=== PATIENT | female | born 1950 | race Caucasian/White ===

== ENCOUNTER 2023-08-24 10:25 | Emergency (ER) | payer OTHER, SELFPAY ==
[2023-08-24] VITALS (9 sets, daily range): BP systolic 159–198; BP diastolic 95–123
--- NOTE | 2023-08-24 11:15 | ED.GENMED ---
History of Present Illness
General
Chief Complaint: Blood Pressure Problem
Source: patient
Exam Limitations: none
Time Seen by Provider: 08/24/23 11:14
Nursing documentation reviewed up to this point in time: agreed with
Travel History
Have you had any contact with someone who has COVID-19?: No
Do you have any symptoms of coronavirus? Fever > 100 degrees, chills, cough, shortness of breath, sore throat, loss of taste or smell, muscle aches, or headache?: No
History of Present Illness
History of Present Illness:
73-year-old female w hx of HTN followed by Dr. Martin Cardiology states her BP has been high past several days. Dr. Martin switched her from Nadolol (she thinks) to Losartan potassium 25 g daily (confirmed in her records) about 2 weeks ago due to
feeling so sleepy. She states her BP was 200/120 this a.m. She denies H/A, N/V, dizziness, weakness, numbness or tingling in extremities. She feels a little fatigued.
Past History
Past History
ED Past Medical History: HTN
ED Past Surgical History: None
Social History
Tobacco: Non-smoker
Personal:
Living: alone
Review of Systems
Review of Systems
Allergies reviewed?: Yes
All Other Systems: ROS reviewed and negative except as documented in HPI and ROS
Constitutional: Reports fatigue; Denies fever
Respiratory: Denies trouble breathing
Cardiac: Denies chest pain
ABD/GI: Denies nausea or vomiting
: Denies dysuria or difficulty voiding
Musculoskeletal: Reports no symptoms
Skin: Reports no symptoms
Neurological: Reports no symptoms
Phy Exam
Physical Exam
Physical Exam:
GENERAL: No acute distress. A&Ox3.
CONSTITUTIONAL: Afebrile.
EYES: Clear, conjunctivae normal
ENMT: moist mucus membranes, Pharynx nl
RESPIRATORY: Regular respirations, nonlabored, lungs clear.
CARDIOVASCULAR: Regular rate and rhythm, no murmurs, no rubs.
GI: Soft, nontender, normal BS
MUSCULOSKELETAL: Moves with ease. Well perfused.
SKIN: Warm, dry, pink
PSYCH: Normal mood and affect. Well kept, interactive and appropriate
NEUROLOGIC: Awake, alert and oriented. No focal neurological deficits
Course
Orders/Labs/Results
Orders:
Orders
08/24/23 10:45
Complete Blood Count/With Diff Urgent
Comprehensive Metabolic Panel Urgent
08/24/23 10:52
Electrocardiogram (*1) Urgent
Reason for Study: Chest Pain
EKG- Treatment ONCE
08/24/23 12:35
Labetalol HCl [Trandate] 10 mg IV NOW STA
Abnormal Lab Results
08/24/23
10:45
WBC 3.8 L 10^3/uL
(4.8-10.8)
RBC 3.36 L 10^6/uL
(4.20-5.40)
Hgb 11.7 L g/dL
(12.0-16.0)
Hct 33.7 L %
(37.0-47.0)
MCV 100.3 H fL
(81.0-99.0)
MCH 34.8 H pg
(27.0-31.0)
Absolute Lymphs (auto) 0.9 L 10^3/uL
(1.2-3.4)
Monocytes % 12.4 H %
(1.7-9.3)
Creatinine 0.5 L mg/dL
(0.6-1.0)
Glucose 114 H mg/dl
(70-99)
Total Bilirubin 1.5 H mg/dl
(0.2-1.3)
AST 129 H U/L
(14-36)
ALT 45 H U/L
(0-35)
08/24/23 10:45
08/24/23 10:45
Vital Signs
Initial and Last Documented VS:
Initial Vital Signs
Temp Pulse Resp BP Pulse Ox
98.1 F 108 18 198/104 99
08/24/23 10:49 08/24/23 10:49 08/24/23 10:49 08/24/23 10:49 08/24/23 10:49
Last Documented Vital Signs
Temp Pulse Resp BP Pulse Ox
98.1 F 101 26 160/95 97
08/24/23 10:49 08/24/23 14:36 08/24/23 14:15 08/24/23 14:00 08/24/23 13:03
Levi Maker consulted with Physician
Levi Maker consulted with physician?: Yes
Name of Physician Consulted: Hasmukh
MDM/Problems Addressed
Differential Diagnosis Includes:
hypertensive urgency, hypertensive emergency
MDM/Problems Addressed:
73-year-old female w hx of HTN followed by Dr. Martin Cardiology states her BP has been high past several days. Dr. Martin switched her from Nadolol (she thinks) to Losartan potassium 25 g daily (confirmed in her records) about 2 weeks ago due to
feeling so sleepy. She states her BP was 200/120 this a.m. She denies H/A, N/V, dizziness, weakness, numbness or tingling in extremities. She feels a little fatigued.
08/24/2023 1235 PM
Manual blood pressure checked by this examiner, 200/118
Labetalol will be administered
Consulted Dr. Noe who agrees with plan
08/24/2023 1428 PM
Blood pressure improved now 166/90
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 Martin who requests to increase her losartan to 50 mg daily and add hydrochlorothiazide 25 mg daily and get BMP in 1 week. Rx for both sent to her pharmacy
Given out pt slip for labs next week.
Pt is comfortable with this plan
*Critical Care Note
Total Time (30-74mins, 75-104mins- exclusive of procedures): Not Applicable
ED Attending Note
-
Portions of this chart may have been created with voice recognition software.� Occasional wrong word or��sound alike� substitutions may have occurred due to the inherent limitations of voice recognition software.
Discharge Plan
Departure
Patient Disposition: Home (Routine Discharge)
Date of Disposition: 08/24/23
Time of Disposition: 14:29
Patient with high blood pressure during this ER visit?: Yes
Condition: Good
Discharge Problem:
Hypertension
Instructions: High Blood Pressure (DC)
Prescriptions:
New
losartan 50 mg tablet
50 mg PO DAILY Qty: 20 0RF
hydrochlorothiazide 25 mg tablet
25 mg PO DAILY Qty: 30 0RF
No Action
losartan 25 mg Tablet
25 mg PO HS
Referrals:
Devonte Martin MD [Active] - Call in 1-3 days for appt
Lenny Fernández MD [Family Provider] -
Activity Restrictions/Additional Instructions:
As we discussed, Dr. Martin wants you to increase your losartan to 50 mg daily. He also wants to add HCTZ 25 mg daily. I sent a prescription to your pharmacy for the HCTZ. Pick it up and start it today.
Get your blood work rechecked next Tuesday or Tuesday.
Call his office tomorrow to make an appointment for later next week after you have had your blood work.
Interventions
Interventions:
*Risk Screen - Suicide Last Done: 08/24/23 10:49
*General Assessment Last Done: 08/24/23 11:40
*Neglect/Abuse Screening Last Done: 08/24/23 10:49
ED- Fall Risk Assessment Last Done: 08/24/23 11:40
*ED COVID-19 Vaccine History Last Done: 08/24/23 10:49
*Nursing Disposition Last Done: 08/24/23 14:43
ED- Cardiac Assessment Last Done: 08/24/23 11:40
ED- Neurological Assessment Last Done: 08/24/23 11:40
ED- Pulmonary Assessment Last Done: 08/24/23 11:40
Discharge Date and Time
Discharge Date/Time: 08/24/23 14:44
[2023-08-24 11:18] LABS: % Basophils 0.5 % (0-2); % Eosinophils 1.1 % (0-6); % Immature Granulocytes 0.3 % (0-0.5); % Lymphocytes 24.9 % (20.5-51.1); % Monocytes 12.4 % (1.7-9.3); % Neutrophils 60.8 % (42.2-75.2); Absolute Lymphocytes 0.9 10^3/uL (1.2-3.4); Absolute Monocytes 0.5 10^3/uL (0.1-0.6); Absolute Neutrophils 2.3 10^3/uL (1.4-6.5); Hematocrit 33.7 % (37.0-47.0); Hemoglobin 11.7 g/dL (12.0-16.0); Mean Corp Hgb Conc. 34.7 g/dL (33.0-37.0); Mean Corpuscular Hgb 34.8 pg (27.0-31.0); Mean Corpuscular Volume 100.3 fL (81.0-99.0); Nucleated Red Blood Cells % 0 %; Platelet Count 210 10^3/uL (130-400); Red Blood Cell Count 3.36 10^6/uL (4.20-5.40); Red Cell Dist. Width 12.3 % (11.5-14.5); White Blood Cell Count 3.8 10^3/uL (4.8-10.8)
[2023-08-24 11:33] LABS: ALT (SGPT) 45 U/L (0-35); AST (SGOT) 129 U/L (14-36); Albumin 4.5 g/dl (3.5-5.0); Alkaline Phosphatase 107 U/L (38-126); Blood Urea Nitrogen 10 mg/dl (7-17); Calcium 9.8 mg/dl (8.4-10.2); Carbon Dioxide 22 mmol/L (22-30); Chloride 98 mmol/L (98-107); Glucose 114 mg/dl (70-99); Potassium 3.7 mmol/L (3.5-5.1); Sodium 136 mmol/L (135-145); Total Bilirubin 1.5 mg/dl (0.2-1.3); Total Protein 7.4 g/dl (6.3-8.2); eGFR > 60.00
[2023-08-24] MEDS: TRANDATE 10 MG IV (13:06)
== END 2023-08-24 14:44 | disposition home or self-care (01) ==
LOC: EMR 10:25
PROVIDERS: Emergency Medicine; EMERGENCY PHYSICIAN Emergency Medicine; FAMILY PHYSICIAN Internal Medicine Geriatric Medicine
DX: I10 Essential (primary) hypertension (principal)
CPT/HCPCS: 99284; 96374; 80053; 85025; 93005

== ENCOUNTER → 2023-08-29 15:28 | Outpatient (REF) | payer OTHER, SELFPAY ==
[2023-08-29 16:26] LABS: Blood Urea Nitrogen 31 mg/dl (7-17); Carbon Dioxide 23 mmol/L (22-30); Chloride 90 mmol/L (98-107); Glucose 152 mg/dl (70-99); Potassium 3.4 mmol/L (3.5-5.1); Sodium 131 mmol/L (135-145); eGFR > 60.00
== END ==
LOC: REG 15:28
PROVIDERS: ATTENDING PHYSICIAN Internal Medicine; FAMILY PHYSICIAN Internal Medicine Geriatric Medicine
DX: I10 Essential (primary) hypertension (principal)
CPT/HCPCS: 36415; 80048

== ENCOUNTER → 2024-02-22 12:27 | Outpatient (REF) | payer OTHER, SELFPAY | LOC: RCS 12:27 | PROVIDERS: ATTENDING PHYSICIAN Nurse Practitioner; FAMILY PHYSICIAN Internal Medicine Geriatric Medicine | DX: I10 Essential (primary) hypertension (principal); I77.810 Thoracic aortic ectasia; R53.83 Other fatigue; I35.8 Other nonrheumatic aortic valve disorders | CPT/HCPCS: 93306 ==

== ENCOUNTER → 2024-06-25 06:19 | Day surgery (SDC) | payer OTHER, SELFPAY | LOC: GI 06:19 | PROVIDERS: ATTENDING PHYSICIAN Internal Medicine Gastroenterology | DX: Z12.11 Encounter for screening for malignant neoplasm of colon (principal); D12.4 Benign neoplasm of descending colon; K55.20 Angiodysplasia of colon without hemorrhage; K64.8 Other hemorrhoids; K56.2 Volvulus; Q43.8 Other specified congenital malformations of intestine; R19.5 Other fecal abnormalities; K20.90 Esophagitis, unspecified without bleeding; K44.9 Diaphragmatic hernia without obstruction or gangrene; K29.80 Duodenitis without bleeding; D50.9 Iron deficiency anemia, unspecified | CPT/HCPCS: 45385; 45382; 43239; 88305; 88342 ==